=== PATIENT | male | born 1995 | race Hispanic/Latino ===

== ENCOUNTER 2020-08-18 17:48 | Emergency (ER) | payer OTHER ==
[~2020-08-18] VITALS: Ht 177.8 cm; Wt 70.5 kg
[2020-08-18] MEDS ORDERED: BUPR75TA69 PO (18:04)
[2020-08-18] MEDS ORDERED: PARO10TA3 PO (18:04)
[2020-08-18] MEDS ORDERED: BUPR150T4 PO (18:07)
[2020-08-18] MEDS ORDERED: PARO20TA4 PO (18:07)
[2020-08-18 18:33] LABS: HEMATOCRIT 45.4 % (42.0-52.0); HEMOGLOBIN 14.9 g/dl (13.5-17.5); MEAN CORPUSCULAR HEMOGLOBIN 29.2 pg (27.0-33.0); MEAN CORPUSCULAR HGB CONC 32.8 g/dl (32.0-36.5); MEAN CORPUSCULAR VOLUME 88.8 fl (80.0-96.0); PLATELET COUNT, AUTOMATED 244 10^3/uL (150-450); RED BLOOD COUNT 5.11 10^6/uL (4.30-6.10); WHITE BLOOD COUNT 6.5 10^3/uL (4.0-10.0)
[2020-08-18 19:01] LABS: AMPHETAMINES LEVEL URINE NEGATIVE (NEGATIVE); BARBITURATES URINE NEGATIVE (NEGATIVE); BENZODIAZEPINES URINE NEGATIVE (NEGATIVE); CANNABINOIDS URINE NEGATIVE (NEGATIVE); COCAINE METABOLITE URINE NEGATIVE (NEGATIVE); METHADONE URINE NEGATIVE (NEGATIVE); OPIATES URINE NEGATIVE (NEGATIVE); PHENCYCLIDINE URINE NEGATIVE (NEGATIVE)
[2020-08-18 19:11] LABS: ACETAMINOPHEN LEVEL < 2.0 UG/ML (10.0-30.0); ALBUMIN 4.4 GM/DL (3.2-5.2); ALT/SGPT 116 U/L (12-78); BILIRUBIN,DIRECT 0.1 MG/DL (0.0-0.2); BILIRUBIN,TOTAL 0.4 MG/DL (0.2-1.0); BLOOD UREA NITROGEN 12 MG/DL (7-18); CALCIUM LEVEL 9.4 MG/DL (8.5-10.1); CARBON DIOXIDE LEVEL 27 MEQ/L (21-32); CHLORIDE LEVEL 107 MEQ/L (98-107); CREATININE FOR GFR 0.87 MG/DL (0.70-1.30); ETHYL ALCOHOL (ETHANOL) < 0.003 % (0.000-0.010); GLOMERULAR FILTRATION RATE > 60.0 (>60); GLUCOSE, FASTING 92 MG/DL (70-100); SALICYLATE LEVEL < 1.7 MG/DL (5.0-30.0); SODIUM LEVEL 139 MEQ/L (136-145); TOTAL PROTEIN 7.9 GM/DL (6.4-8.2)
[2020-08-18] MEDS ORDERED: ACETAMINOPHEN TAB 650MG DOSE (2X325MG) PO ONE (20:15)
[2020-08-18 20:58] LABS: RSV AMPLIFICATION NEGATIVE (NEGATIVE)
[2020-08-19 08:40] VITALS: BP 131/69
--- NOTE | 2020-08-20 07:56 | ECGEPIP ---
[facility] - ED Test Date: 2020-08-18 Pat Name: JOSESITO RENTERIA Department: Room: - Gender: Male Canvas Marker: ROSANNE : 1995 Requested By: Mitchell Dc Order Number: [id number] Reading MD: Ngoc Wakefield Measurements Intervals [place] Rate: 67 P: 59 NE: 176 QRS: 90 QRSD: 98 T: 62 QT: 376 QTc: 399 Interpretive Statements SINUS RHYTHM No prior Electronically Signed on 08-20-2020 7:56:32 EST by Ngoc Wakefield
== END 2020-08-19 08:44 ==
LOC: M ED 17:48
DX: R45.851 Suicidal ideations (principal); F31.9 Bipolar disorder, unspecified; Z91.5 Personal history of self-harm; F17.200 Nicotine dependence, unspecified, uncomplicated; Z79.899 Other long term (current) drug therapy
CPT/HCPCS: 36415; 80048; 80076; 80307; 84443; 85027; 87631; 93005; 99285; G0480